=== PATIENT | female | born 1965 | race Two or more races ===

== ENCOUNTER 2017-08-11 11:12 | Inpatient (IN) | payer SELFPAY ==
[~2017-08-11] VITALS: Ht 167.6 cm; Wt 72.6 kg
[2017-08-11] VITALS (10 sets, daily range): BP systolic 83–150; BP diastolic 48–76
--- NOTE | 2017-08-11 11:24 | NUR ---
WENDY CHAVEZ URINARY RETENTION SINCE LAST NIGHT. PATIENT IS COMPLAININF OF PRESSURE LIKE BLADDER DISCOMFORT, 5/10. PER PATIENT, PT IS ON LASIX DT CHF. PATIENT IS AFEBRILE. SKIN IS WARM TO TOUCH. VSS. PENDING MD MCKAY
[2017-08-11 11:49] LABS: APPEARANCE,URINE CLEAR (CLEAR); BILIRUBIN,URINE NEGATIVE (NEGATIVE); BLOOD, URINE NEGATIVE Ery/uL (NEGATIVE); COLOR,URINE YELLOW (YELLOW); KETONES,URINE NEGATIVE (NEGATIVE); LEUKOCYTE ESTERASE ,URINE NEGATIVE (NEGATIVE); NITRITE, URINE NEGATIVE (NEGATIVE); PROTEIN,URINE TRACE mg/dl (NEGATIVE); UGLUCOSE NEGATIVE (NEGATIVE); UROBILINOGEN,URINE 0.2 EU/dL (0.2)
[2017-08-11 11:49] LABS: HEMATOCRIT 28 % (33-45); HEMOGLOBIN 8.6 g/dL (11.5-14.8); MEAN CORPUSCULAR HEMOGLOBIN 20 PG (26.0-33.0); MEAN CORPUSCULAR HGB CONC 31 g/dl (31.0-36.0); MEAN CORPUSCULAR VOLUME 64 fL (82-100); PLATELET COUNT (AUTO) 452 /CMM (150-450); RDW COEFFICIENT OF VARIATION 19.8 (11.5-15.0); RED BLOOD CELL COUNT(AUTO) 4.35 MIL/uL (4.0-5.2); WHITE BLOOD COUNT (AUTO) 7.2 K/uL (4.3-11.0)
[2017-08-11 12:03] LABS: CALCIUM, SERUM 9.1 mg/dL (8.5-10.1); POTASSIUM 3.6 mmol/L (3.5-5.1)
--- NOTE | 2017-08-11 12:03 | NUR ---
ROBLES CATH PLACED FOR 15 MINUTES, DRAINED, 100ML OF CLEAR YELLOW URINE, DC PER MD ORDER.
[2017-08-11 12:09] LABS: ALBUMIN 3.5 g/dL (3.4-5.0); BILIRUBIN,DIRECT 0.6 mg/dL (0.0-0.2); BILIRUBIN,TOTAL 1.5 mg/dL (0.2-1.0); TOTAL PROTEIN, SERUM 8.1 g/dL (6.4-8.2)
[2017-08-11 12:12] LABS: INR 2.08 (0.87-1.13)
[2017-08-11 12:21] LABS: RBC,URINE NONE SEEN /HPF (0-2)
[2017-08-11 12:22] LABS: BACTERIA,URINE Rare /HPF (None Seen); SQUAMOUS EPITHELIAL CELL,UR Few /HPF (None Seen); URINE AMORPHOUS URATE Few /HPF (None Seen); WBC,URINE 0-2 /HPF (0-3)
--- NOTE | 2017-08-11 12:38 | NUR ---
PT TO CTSCAN.
[2017-08-11] MEDS ORDERED: DIGO250T PO (13:02)
[2017-08-11] MEDS ORDERED: FURO-144 PO (13:02)
[2017-08-11] MEDS ORDERED: WARF5TAB6 PO (13:02)
[2017-08-11] MEDS ORDERED: POLY15DR40 EACHEYE (13:03)
[2017-08-11] MEDS ORDERED: PANT40TA2 PO (13:03)
[2017-08-11 13:13] LABS: EOSINOPHILS % (MANUAL) 3 % (0-4); LYMPHOCYTES % (MANUAL) 22 % (16-48); MONOCYTES % (MANUAL) 5 % (0-11.0); NEUTROPHILS % (MANUAL) 70 (42-76)
[2017-08-11 14:11] LABS: DIGOXIN 2.67 ng/mL (0.90-2.00)
[2017-08-11 14:15] LABS: TROPONIN I 0.026 ng/mL (0.00-0.056)
[2017-08-11] MEDS ORDERED: DIGOXIN IMMUNE FAB 40 MG in IV NS 0.9% 36 ML, IV TOTAL VOLUME 40 ML IV PRN ×3 (15:00)
[2017-08-11] MEDS ORDERED: NS 0.9% IV ONE ×3 (15:12)
[2017-08-11] MEDS ORDERED: TOTAL VOLUME IV ONE ×3 (15:12)
[2017-08-11] MEDS ORDERED: DIGOXIN IMMUNE FAB IV ONE ×3 (15:12)
--- NOTE | 2017-08-11 15:16 | NUR ---
CALLED NURSE SUP FOR ICU BED
--- NOTE | 2017-08-11 15:22 | NUR ---
PAGED EPIC FOR PANEL
[2017-08-11] MEDS ORDERED: hydrALAZINE HCL IV 20 MG VIAL IV PRN (15:30)
[2017-08-11] MEDS ORDERED: Z GUARD REMEDY 2 OZ OINT TP PRN (15:30)
[2017-08-11] MEDS: FUROSEMIDE 40 MG/4 ML VIAL IV SCH ×2 (15:30→19:20)
[2017-08-11] MEDS ORDERED: ACETAMINOPHEN 325 MG TABLET PO PRN (15:30)
[2017-08-11] MEDS ORDERED: MAGNESIUM HYDROXIDE 30 ML UDC PO PRN (15:30)
[2017-08-11] MEDS ORDERED: ONDANSETRON HCL/PF 4 MG/2 ML VIAL IVP PRN (15:30)
[2017-08-11] MEDS ORDERED: MAG HYDROX/AL HYDROX/SIMETH 30 ML UDC PO PRN (15:30)
[2017-08-11] MEDS ORDERED: ZOLPIDEM TARTRATE 5 MG TABLET PO PRN (15:30)
[2017-08-11] MEDS ORDERED: PANTOPRAZOLE 40 MG TABLET.DR PO PRN (15:30)
[2017-08-11] MEDS ORDERED: HYDROCODONE/APAP 5/325MG 1 EACH TABLET PO PRN (15:30)
[2017-08-11] MEDS ORDERED: WARFARIN SODIUM 5 MG TABLET PO SCH (17:00)
--- NOTE | 2017-08-11 18:19 | NUR ---
Patient admitted from [facility] with complain of urinary retention from past day and diagnosis of Digitalis Toxicity. Patient is A/O X3 bengali speaking female.Family (son) present at bedside.I.V on JOB #22 CDI and patent.no s/s of distress,no sob noted at this time.will continue to monitor for changes.
--- NOTE | 2017-08-11 19:30 | NUR ---
MICROSOFT ARCHITECT: RECEIVED PT A/O X 3, AZERI SPEAKING ONLY. SON AT BEDSIDE TO INTERPRET. NOTED ABNORMAL CARDIAC RHYTHM SR/SB WT FREQUENT PVCs TO A. FIB TO JUNCTIONAL RHYTHM SINCE ADMISSION TO ICU. WILL CLOSELY MONITOR AND NOTIFY MD NEEDED. SAFETY PRECAUTION NOTED. HOB AT 35 DEGREES. WILL CONTINUE TO MONITOR.
[2017-08-11 19:48] LABS: CALCIUM, SERUM 8.9 mg/dL (8.5-10.1); POTASSIUM 3.6 mmol/L (3.5-5.1)
--- NOTE | 2017-08-11 20:15 | NUR ---
RESIDENTIAL SPECIALIST: PT NOTED WT JUNCTIONAL BRADYCARDIA, HR=47 WT PVCs. PT REMAINS ALERT AND AWAKE. NO ACUTE DISTRESS. NO C/O PAIN OR EVIDENCE OF DISCOMFORT. SON AT BED SCOT. EKG ORDERED STAT.
[2017-08-11] MEDS ORDERED: PHENOBARBITAL 60 MG/15 ML UDC ONE (21:23)
[2017-08-11 21:42] LABS: OSMOLALITY,SERUM 279 mOS/kg (278-305)
[2017-08-11 21:56] LABS: B-TYPE NATRIURETIC PEPTIDE 3249 PG/ML (0-125)
[2017-08-11 22:15] LABS: URINE SODIUM, RANDOM 6 mmol/l (40-220)
[2017-08-11 22:21] LABS: OSMOLALITY,URINE 171 mOS/kg (340-1090)
[2017-08-11 23:13] LABS: CALCIUM, SERUM 8.6 mg/dL (8.5-10.1); CREATININE 1.9 mg/dL (0.6-1.3); POTASSIUM 3.6 mmol/L (3.5-5.1)
[2017-08-12] VITALS: BP 111/46
--- NOTE | 2017-08-12 | NUR ---
HOME COORDINATOR: PT IS TRYING TO SAY SOMETHING AND CALLED SON ADAMA TO INTERPRET. HE SAID SHE WANTS TO GO HOME PT IS UNABLE TO SLEEP WITH ALL THE LAB TESTS AND WIRES CONNECTED TO HER. PT AND FAMILY EDUCATION RENDERED THAT PT IS IN ICU AND NEEDED TO BE MONITOR CLOSELY. SON SAID HE WILL COME RIGHT AWAY TO TAKE THE PT HOME AND WT THE PT's AGREEMENT. RESPECTED PT's RIGHTS. NOTIFIED FAVIAN DELGADILLO AND SAID SHE WILL COME TO ICU TO TALK TO PT AND SON.
--- NOTE | 2017-08-12 00:20 | NUR ---
DIGITAL ADVERTISING ANALYST: SON AT BEDSIDE WT FAVIAN DELGADILLO AND CONFIRMED THAT PT WANTS TO GO HOME. FARMER DIVERSIFIED CROPS EXPLAINED THAT PT IS IN CRITICAL CONDITION AND IF NOT SATISFIED WITH [facility], THEN SHOULD GO STRAIGHT TO ANOTHER HOSPITAL. SON EXPLAINED/INTERPRETED TO PT YET PT DECLINED AND SAID SHE WANTS TO GO HOME. AMA SIGNED BY FARMER DIVERSIFIED CROPS, PT AND SON. REMOVED IV AND ROBLES CATHETER. ALL BELONGINGS SENT TO PT AND SON WT ED CHARGE NURSE WITNESS.
--- NOTE | 2017-08-12 00:45 | NUR ---
VETERINARIAN ASSISTANT: PT LEFT FACILITY VIA WHEELCHAIR ACCOMPANIED BY SON AND DRIVER LICENSE REVIEWING OFFICER.
== END 2017-08-12 00:49 | disposition left against medical advice (07) | DRG 917 ==
LOC: ER 11:19 → ICU 17:03
PROVIDERS: ADMIT Internal Medicine; ATTEND Internal Medicine
DX: T46.0X1A Poisoning by cardiac-stimulant glycosides and drugs of similar action, accidental (unintentional), initial encounter (principal); N17.0 Acute kidney failure with tubular necrosis; I13.0 Hypertensive heart and chronic kidney disease with heart failure and stage 1 through stage 4 chronic kidney disease, or unspecified chronic kidney disease; E87.1 Hypo-osmolality and hyponatremia; I50.9 Heart failure, unspecified; E66.9 Obesity, unspecified; I48.2 Chronic atrial fibrillation; E78.5 Hyperlipidemia, unspecified; K21.9 Gastro-esophageal reflux disease without esophagitis; N18.9 Chronic kidney disease, unspecified; Z95.2 Presence of prosthetic heart valve; Y92.009 Unspecified place in unspecified non-institutional (private) residence as the place of occurrence of the external cause; R00.1 Bradycardia, unspecified; R74.0 Nonspecific elevation of levels of transaminase and lactic acid dehydrogenase [LDH]; Z68.25 Body mass index [BMI] 25.0-25.9, adult; Z79.01 Long term (current) use of anticoagulants; R11.2 Nausea with vomiting, unspecified
CPT/HCPCS: 36415; 80048-TC; 80076-TC; 80162-TC; 81000-TC; 83690-TC; 83880; 83935-TC; 84300-TC; 84484-TC; 85025-TC; 85730-TC; 87081-TC; A4216; A4606; J1162; J1940; Z7610